=== PATIENT | male | born 1980 | race Caucasian/White ===

== ENCOUNTER 2019-05-02 22:18 | Inpatient (IN) | payer SELFPAY ==
[2019-05-02] MEDS ORDERED: Morphine 4 MG/ML VIAL ONE (23:44)
[2019-05-02] MEDS ORDERED: Ondansetron PF 4 MG/2 ML Vial ONE (23:44)
[2019-05-03 01:03] LABS: #Basophils 0.1 thou/uL (0.0-0.2); #Eosinphils 0.2 thou/uL (0.0-0.7); #Lymphocytes 4.2 thou/uL (1.20-3.40); #Monocytes 0.6 thou/uL (0.11-0.59); #Neutrophils 5.1 thou/uL (1.40-6.50); %Eosinophils 2.3 % (0.0-10.0); %Lymphocytes 41.2 % (21.0-51.0); %Monocytes 6.1 % (0.0-10.0); %Neutrophils 49.4 % (42.0-75.0); Hemoglobin 16.1 g/dL (14.0-18.0); Mean Corpuscular HGB CONC 34.4 g/dL (32.0-36.0); Platelet Count 182 thou/uL (130-400); RBC Distribution Width 11.6 % (11.5-14.5); Red Blood Cell (RBC) Count 5.02 mill/uL (4.70-6.10); White Blood Cell (WBC) Count 10.2 thou/uL (4.8-10.8)
[2019-05-03 01:24] LABS: Bacteria/HPF None Seen HPF (None Seen); Bilirubin Negative (Negative); Blood, Urine Negative (Negative); Clarity Clear (Clear); Glucose, Urine (Dipstick) Greater than 1000 mg/dL (Negative); Leukocyte Negative Leu/uL (Negative); Nitrite Negative (Negative); Protein, Urine (Dipstick) 30 mg/dL (Neg-Trace); RBC/HPF 0-3 HPF (0-3); Squamous Epithelial None Seen HPF (0-3); Urobilinogen Normal mg/dL (Less than 2); WBC/HPF 0-3 HPF (0-3)
[2019-05-03 01:24] LABS: ALT (SGPT) 14 U/L (8-55); AST (SGOT) 12 U/L (5-34); Albumin 3.5 g/dL (3.5-5.0); Alkaline Phosphatase 70 U/L (40-150); Anion Gap 10 mmol/L (10-20); BUN (Urea Nitrogen) 13 mg/dL (8.9-20.6); Bilirubin, Total 0.5 mg/dL (0.2-1.2); Calc. Creatinine Clearance 0 mL/min (70-130); Calcium 8.5 mg/dL (7.8-10.44); Carbon Dioxide 24 mmol/L (22-29); Chloride 104 mmol/L (98-107); Estimated GFR-MDRD Greater than 90; Globulin 2.9 g/dL (2.4-3.5); Glucose 269 mg/dL (70-105); Potassium 3.5 mmol/L (3.5-5.1); Protein, Total 6.4 g/dL (6.0-8.3); Sodium 134 mmol/L (136-145)
[2019-05-03] MEDS ORDERED: Acetaminophen 325 MG TAB PO PRN (01:58)
[2019-05-03] MEDS ORDERED: Ondansetron ODT 4 MG TAB SL PRN (01:58)
[2019-05-03] MEDS ORDERED: Ondansetron PF 4 MG/2 ML Vial IVP PRN (01:58)
[2019-05-03] MEDS ORDERED: Senokot S 8.6-50 MG TAB PO PRN (02:22)
[2019-05-03 02:25] VITALS: BMI 38.0
[2019-05-03] MEDS ORDERED: Dextrose 5% in Water 1,000 ML IV PRN (02:32)
[2019-05-03] MEDS ORDERED: Dextrose 50% Abboject 50 ML SYRINGE SLOW IVP PRN (02:32)
[2019-05-03] MEDS: Clindamycin/D5W 600 MG in Premix Bag 1 BAG IVPB SCH ×2 (02:56→08:25)
[2019-05-03] MEDS ORDERED: Vancomycin HCl 1 GM in Premix Bag 1 BAG IVPB SCH (03:00)
[2019-05-03] MEDS: Morphine 4 MG/ML VIAL SLOW IVP PRN ×4 (03:09→20:39)
--- NOTE | 2019-05-03 03:24 | PDOC.FPRHP ---
- History of Present Illness Chief Complaint: scrotal pain History of Present Illness: Patient is 39M with PMHx of DM, HTN, and recurrent skin abscesses presents with scrotal pain and draining abscess. Patient states the current abscess began 3 days ago, and popped yesterday and began draining foul-smelling pus and blood. He states that the area is painful, rating it a 7-8/10. He states that within the last 1.5 months he has had 4 of these abscesses occur, 2 on his buttock and 2 on his scrotum. He reports that his pops them, puts tea tree oil and antibacterial ointment on them and they go away. He states that 20 years ago he had one abscess on his scrotum that required extensive surgery, and after which they told him it was positive for MRSA. Denies any recent fevers, weight changes, cp, SOB, abdominal pain, diarrhea, constipation, dysuria, hematuria. ED Course: [facility] ED: -Received vanc and clindamycin -CT: L perineal soft tissue swelling, no focal abscess Received fentanyl in ambulance on way from [facility] 1L NS 2mg morphine 4mg zofran - Allergies/Adverse Reactions Allergies Allergy/AdvReac Type Severity Reaction Status Date / Time No Known Drug Allergies Allergy Verified 05/03/19 02:55 - Home Medications Medication Instructions Recorded Confirmed Type Insulin NPH Hum/Reg Insulin HM 4 unit SQ DAILY PRN 05/03/19 05/03/19 History [Novolin 70-30 100 Unit/ml Vial] Lisinopril 20 mg PO DAILY 05/03/19 05/03/19 History metFORMIN [Glucophage] 500 mg PO BID-WM 05/03/19 05/03/19 History - History PMHx: DM, HTN, recurrent skin abscesses, one 20 yrs ago tested positive for MRSA per patient PSHx: scrotal abscess wound debridement 20 years ago FHx:Mom- DM Social:1ppd smoker, no etoh or drugs - Review of Systems General: denies: fever/chills, weight/appetite/sleep changes, night sweats Eyes: denies: eye pain, vision changes ENT: denies: nasal congestion, rhinorrhea Respiratory: reports: shortness of breath (chronic exertional SOB). denies: cough Cardiovascular: denies: chest pain, edema Gastrointestinal: denies: nausea, vomiting, diarrhea, constipation Genitourinary: denies: incontinence, dysuria, discharge Skin: reports: lesions (periscrotal abscesses) Musculoskeletal: denies: pain, swelling Neurological: denies: numbness, seizure, weakness Psychological: denies: anxiety, depression - Vital signs BP: [133/74] HR: [76] RR: [16] Tmax: [97.9] Pox: [95]% on [RA] Wt: [127kg] - Physical Exam Constitutional: NAD, awake, alert and oriented, well developed HEENT: normocephalic and atraumatic, EOMI, MMM Neck: supple, trachea midline Chest: no-tender to palpation, no lesions Heart: RRR, normal S1/S2 Lungs: CTAB, no respiratory distress, good air movement Abdomen: soft, non-tender, bowel sounds present Musculoskeletal: normal structure, normal tone Neurological: no focal deficit, normal sensation Skin: good turgor, other (1.5x1.5cm open draining abscess with faint surrounding erythema on left periscrotal area) Heme/Lymphatic: no unusual bruising or bleeding, no purpura Psychiatric: normal mood and affect, good judgment and insight FMR H&P: Results - Labs Result Diagrams: 05/03/19 05:42 05/03/19 05:42 Lab results: WBC 10.2 thou/uL (4.8-10.8) 05/03/19 00:34 Hgb 16.1 g/dL (14.0-18.0) 05/03/19 00:34 Hct 46.7 % (42.0-52.0) 05/03/19 00:34 MCV 93.0 fL (78.0-98.0) 05/03/19 00:34 Plt Count 182 thou/uL (130-400) 05/03/19 00:34 Neutrophils % 49.4 % (42.0-75.0) 05/03/19 00:34 Sodium 134 mmol/L (136-145) L 05/03/19 00:34 Potassium 3.5 mmol/L (3.5-5.1) 05/03/19 00:34 Chloride 104 mmol/L (98-107) 05/03/19 00:34 Carbon Dioxide 24 mmol/L (22-29) 05/03/19 00:34 BUN 13 mg/dL (8.9-20.6) 05/03/19 00:34 Creatinine 0.75 mg/dL (0.7-1.3) 05/03/19 00:34 Glucose 269 mg/dL (70-105) H 05/03/19 00:34 Lactic Acid 0.7 mmol/L (0.5-2.2) 05/03/19 00:31 Calcium 8.5 mg/dL (7.8-10.44) 05/03/19 00:34 Total Bilirubin 0.5 mg/dL (0.2-1.2) 05/03/19 00:34 AST 12 U/L (5-34) 05/03/19 00:34 ALT 14 U/L (8-55) 05/03/19 00:34 Alkaline Phosphatase 70 U/L (40-150) 05/03/19 00:34 Serum Total Protein 6.4 g/dL (6.0-8.3) 05/03/19 00:34 Albumin 3.5 g/dL (3.5-5.0) 05/03/19 00:34 Urine Ketones 10 mg/dL (Negative) A 05/03/19 01:06 Urine Blood Negative (Negative) 05/03/19 01:06 Urine Nitrite Negative (Negative) 05/03/19 01:06 Ur Leukocyte Esterase Negative Farooq/uL (Negative) 05/03/19 01:06 Urine RBC 0-3 HPF (0-3) 05/03/19 01:06 Urine WBC 0-3 HPF (0-3) 05/03/19 01:06 Ur Squamous Epith Cells None Seen HPF (0-3) 05/03/19 01:06 Urine Bacteria None Seen HPF (None Seen) 05/03/19 01:06 FMR H&P: A/P - Problem List (1) Cellulitis Current Visit: Yes Status: Acute Code(s): L03.90 - CELLULITIS, UNSPECIFIED (2) Diabetes mellitus type 2 in obese Current Visit: Yes Status: Acute Code(s): E11.69 - TYPE 2 DIABETES MELLITUS WITH OTHER SPECIFIED COMPLICATION; E66.9 - OBESITY, UNSPECIFIED (3) HTN (hypertension) Current Visit: Yes Status: Acute Code(s): I10 - ESSENTIAL (PRIMARY) HYPERTENSION - Plan #periscrotal cellulitis with draining abscess, periscrotal pain -hx of MRSA from previous abscess, per patient -recurrent skin abscesses -given vanc and clindamycin at outside ED, continue -pharmacy to dose -monitor vanc troughs -morphine for pain control -wound care consult -consider sx consult in am #DMII -chronic, patient takes metformin at home -hyperglycemia protocol -SSI -hold home metformin #HTN -takes lisinopril at home -continue home meds DVT proph: lovenox GI proph: pepcid Diet: CC Code: Full Dispo: Obs for abx management of cellulitis FMR H&P: Upper Level - Plan Date/Time: 05/03/19 0361 I, Arias Bashir MD , have evaluated this patient and agree with findings/plan as outlined by international banker resident. Pertinent changes/additions are listed here. Shadi Contreras is a 39 year old M with a PMH of HTN, DM2, recurrent skin infections who was sent to [facility] ER from [facility] ED for periscrotal abscess. Patient states that he has been dealing with recurrent abscess and skin infection around the periscrotal and scrotal area for the last year. States that this particular time, symptoms started about 3 days ago. The area started spontaneously draining pus and blood about 1-2 days ago but he states that the pain has continued. In [facility], he was started on Vancomycin and clindamycin as well as toradol and fentanyl for pain and CT was done that showed soft tissue swelling in the left perineal region and no focal abscess. In the [facility] ED, he was given 1 L NS, 2 mg morphine, 4 mg zofran. Labs and physical exam findings as above. Vitals were all stable and wnl. Patient is admitted to obs/medical for periscrotal cellulitis, will like transition patient to PO antibiotics later today. My suspicion for emy's gangrene is low at this time but will have low threshold to consult gen surg for evaluation. Continue Vanc and clinda at this time, patient does have a hx of MRSA skin infection. Pain control. Anticipate hospital stay < 48 hours. Please see international banker note above for full H&P. Addendum - Attending - Attending Attestation Date/Time: 05/03/19 8187 I personally evaluated the patient and discussed the management with Dr. Mai/ Mckay. I agree with the History, Examination, Assessment and Plan documented above with any addition or exceptions noted below. Patient with uncontrolled DM and history of multiple groin abscesses here with similar presentation. We will continue on abx and consult Gen Surgery to see if these are in need of debridement and drainage. Consult wound care. Further mgmt per their recs.
[2019-05-03] MEDS: Nicotine 21 MG PATCH TD SCH (03:41)
--- NOTE | 2019-05-03 05:39 | PDOC.FM ---
- Subjective Subjective: Pt has no complaints this morning. He states his pain is controlled with morphine. Cellulitis continues draining but he believes it has improved. He denies fever, chills. - Objective Vital Signs & Weight: Vital Signs (12 hours) Temp Pulse Resp BP Pulse Ox 05/03/19 01:50 97.8 F 76 18 123/83 97 Weight Weight 127.119 kg Result Diagrams: 05/03/19 05:42 05/03/19 05:42 Phys Exam - Physical Examination Constitutional: NAD Respiratory: no wheezing, no rales, no rhonchi, clear to auscultation bilateral Cardiovascular: RRR, no significant murmur Gastrointestinal: soft, non-tender, no distention Musculoskeletal: no edema, pulses present Deviation from normal: Pt has erythematous lesion on L upper leg in the groin regoin, draining Dx/Plan (1) Cellulitis Code(s): L03.90 - CELLULITIS, UNSPECIFIED Status: Acute (2) Diabetes mellitus type 2 in obese Code(s): E11.69 - TYPE 2 DIABETES MELLITUS WITH OTHER SPECIFIED COMPLICATION; E66.9 - OBESITY, UNSPECIFIED Status: Acute (3) HTN (hypertension) Code(s): I10 - ESSENTIAL (PRIMARY) HYPERTENSION Status: Acute - Plan Plan: #periscrotal cellulitis with draining, periscrotal pain Hx of MRSA from previous abscess, recurrent skin abscesses, per pt -continue vancomycin (Started 05/02), discontinue clindamycin (05/02-05/03) as both have coverage for MSSA. -pharmacy to dose -monitor vanc troughs -morphine for pain control - well controlled -wound care consult, appreciate recs - surg consult, appreciate recs #DMII -chronic, patient takes metformin at home; will re-evaluate control at this time as he remains hyperglycemic and this is contributing to cellulitis, recurrent. -hyperglycemia protocol -SSI mild -hold home metformin #HTN -takes lisinopril at home -continue home meds DVT proph: lovenox GI proph: pepcid Diet: CC Code: Full Dispo: Pt is inpt at this time, consulting surg and wound care to further assess lesion as this could progress to emy's gangrene and continuing abx coverage.
[2019-05-03] MEDS: HumaLOG 300 UNITS/3 ML VIAL SC PRN ×4 (06:32→20:27)
[2019-05-03 06:35] LABS: Band 3 % (5-11); Eosinophils 3 % (0-10); Hemoglobin 15.7 g/dL (14.0-18.0); Lymphocytes 41 % (21-51); MDiff Complete? YES; Mean Corpuscular HGB CONC 32.8 g/dL (32.0-36.0); Mean Corpuscular Hemoglobin 30.4 pg (27.0-31.0); Mean Corpuscular Volume 92.7 fL (78.0-98.0); Mean Platelet Volume 8.3 fL (7.4-10.4); Monocytes 3 % (0-10); Neutrophil 50 % (42-75); Platelet Count 168 thou/uL (130-400); Platelet Morphology Comment Appears Adequate; RBC Distribution Width 11.6 % (11.5-14.5); Red Blood Cell (RBC) Count 5.17 mill/uL (4.70-6.10); White Blood Cell (WBC) Count 9.3 thou/uL (4.8-10.8)
[2019-05-03 06:40] LABS: Anion Gap 9 mmol/L (10-20); BUN (Urea Nitrogen) 11 mg/dL (8.9-20.6); Calc. Creatinine Clearance 242 mL/min (70-130); Calcium 8.2 mg/dL (7.8-10.44); Carbon Dioxide 21 mmol/L (22-29); Chloride 105 mmol/L (98-107); Estimated GFR-MDRD Greater than 90; Glucose 212 mg/dL (70-105); Potassium 3.8 mmol/L (3.5-5.1); Sodium 131 mmol/L (136-145)
[2019-05-03] MEDS: Famotidine 20 MG TAB PO SCH ×2 (08:23→20:28)
[2019-05-03] MEDS: Lisinopril 20 MG TAB PO SCH (08:24)
[2019-05-03] MEDS: Enoxaparin Sodium 40 MG/0.4 ML SYRINGE SC SCH (08:25)
[2019-05-03] MEDS ORDERED: Boudreaux's Butt Paste 60 GM TUBE TOP PRN (09:34)
--- NOTE | 2019-05-03 13:18 | CON ---
DATE OF CONSULTATION: 05/03/2019 CHIEF COMPLAINT: Perineal infection. HISTORY OF PRESENT ILLNESS: This is a 39-year-old male with a history of diabetes mellitus, insulin dependent, who presents with a history of open draining wound in his left groin. 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 He notes that he has these wounds open up in his perineum intermittently. They swell, they hurt, they drain, and then they are better for a while. He notes no pain now. There is a foul smell of the fluid coming out. He notes that they had actually the pain solis much improved. It is not so severe. No fevers or chills. He was transferred here from [place] for higher level of care. PAST MEDICAL HISTORY: Includes diabetes mellitus, type 2; hypertension; and recurrent skin infections. PAST SURGICAL HISTORY: Includes scrotal debridements. MEDICATIONS: Medicines taken daily: See list in chart. ALLERGIES: NO KNOWN DRUG ALLERGIES. SOCIAL HISTORY: He is a 7-vkmc-o-day smoker. No alcohol or other drugs. REVIEW OF SYSTEMS: Ten-system review of systems is otherwise negative unless described above. PHYSICAL EXAMINATION: VITAL SIGNS: Blood pressure is 132/76, pulse 73, respirations 18, temperature 97.6. HEENT: Sclerae are anicteric. Oropharynx is clear. NECK: No lymphadenopathy. CHEST: Clear. HEART: Regular rate. ABDOMEN: Soft and nontender. GENITOURINARY: Examination of his perineum reveals there to be no obvious scrotal or external genitalia infection. There are condyloma-appearing changes to the right groin and in the perianal area. There is no obvious perirectal abscess. There are no open wounds to the perirectal area. There is a small 1-cm open wound with foul-smelling small amount of fluid to the left inner thigh. There is no obvious tunneling over to the scrotum. There is no scrotal bulla, fluctuance, or crepitance. LABORATORY DATA: White blood cell count is 9, hemoglobin 15, platelet count is 168. His creatinine is 0.73. ASSESSMENT: 1. Perineal infection. 2. History of Katherine gangrene. 3. Insulin-dependent diabetes mellitus. 4. Hypertension. PLAN: I do not think he needs any debridement at this time. I would recommend to continue IV antibiotics. We will reassess in the morning and likely discharge home tomorrow and switch to oral antibiotics. I would then see him back in my office in a few weeks for wound check. Job ID: [id number]
[2019-05-03] MEDS ORDERED: Ibuprofen 800 MG TAB PO PRN (13:32)
[2019-05-03 16:52] LABS: Hemoglobin A1c 11.1 % (4.0-6.0)
[2019-05-03] MEDS: Acetaminophen 325 MG TAB PO SCH (17:26)
[2019-05-03] MEDS: Boudreaux's Butt Paste 60 GM TUBE TOP SCH (20:42)
[2019-05-04] MEDS: Acetaminophen 325 MG TAB PO SCH ×3 (01:12→11:02)
[2019-05-04] MEDS: Nicotine 21 MG PATCH TD SCH (03:18)
[2019-05-04 03:44] LABS: Vancomycin, Trough 18.3 ug/mL
--- NOTE | 2019-05-04 05:55 | PDOC.FM ---
- Subjective Subjective: Pt is doing well. He has no complaints. Cellulitis is less painful and in his perspective improving. - Objective Vital Signs & Weight: Vital Signs (12 hours) Temp Pulse Resp BP Pulse Ox 05/04/19 04:27 97.7 F 77 16 112/59 L 96 05/04/19 00:17 97.7 F 70 16 96/58 L 96 05/03/19 20:00 95 Weight Admit Weight 127.119 kg Weight 127.119 kg I&O: 05/02/19 05/03/19 05/04/19 06:59 06:59 06:59 Intake Total 250 1320 Balance 250 1320 Result Diagrams: 05/03/19 05:42 05/03/19 05:42 Phys Exam - Physical Examination Constitutional: NAD overweight HEENT: PERRLA, sclera anicteric Neck: no nodes, no JVD Respiratory: no wheezing, no rales, no rhonchi, clear to auscultation bilateral Cardiovascular: RRR, no significant murmur Gastrointestinal: soft, non-tender, positive bowel sounds Musculoskeletal: no edema, pulses present Psychiatric: normal affect, A&O x 3 -: Lesion on L leg is mildly erythematous, did not appreciate any drainage Dx/Plan (1) Cellulitis Code(s): L03.90 - CELLULITIS, UNSPECIFIED Status: Acute (2) Diabetes mellitus type 2 in obese Code(s): E11.69 - TYPE 2 DIABETES MELLITUS WITH OTHER SPECIFIED COMPLICATION; E66.9 - OBESITY, UNSPECIFIED Status: Acute (3) HTN (hypertension) Code(s): I10 - ESSENTIAL (PRIMARY) HYPERTENSION Status: Acute - Plan Plan: # Periscrotal cellulitis with draining, periscrotal pain Hx of MRSA from previous abscess, recurrent skin abscesses, per pt -continue vancomycin (Started 05/02), discontinue clindamycin (05/02-05/03); pt healing well - consult surg, appreciate recs - surg does not feel need for debridement and likely pt will be fine for discharge today with oral abx; will follow up with surg regarding abx therapy, pt will follow up with surg as outpt in a couple of weeks # DMII - chronic, patient takes metformin at home; hyperglycemia contributing to recurrent abscess - hyperglycemia protocol - SSI mild requiring 14 U 05/03 - restart metformin and increase to 1000 mg PO BID - will consider Novolog 70/30 5 U BID # Hyponatremia - asymptomatic, corrected sodium 133 # HTN -takes lisinopril at home -continue home meds DVT proph: lovenox GI proph: pepcid Diet: CC Code: Full Dispo: Pt is inpt at this time, consulting surg and wound care to further assess lesion as this could progress to emy's gangrene and continuing abx coverage. Addendum - Attending - Attending Attestation Date/Time: 05/04/19 8493 I personally evaluated the patient and discussed the management with Dr. Coker. I agree with the History, Examination, Assessment and Plan documented above with any addition or exceptions noted below. Patient here for recurrent scrotal cellulitis. He does not need surgical drainage as of yet, awaiting re-eval by general surgery today. If no drainage needed, discharge home later today with PO abx and initiation of insulin therapy for his uncontrolled DM.
[2019-05-04] MEDS: HumaLOG 300 UNITS/3 ML VIAL SC PRN ×2 (06:18→13:23)
[2019-05-04] MEDS ORDERED: HumuLIN 70/30 (300 UNITS/3 ML VIAL) SC SCH ×2 (09:40→21:00)
[2019-05-04] MEDS: Famotidine 20 MG TAB PO SCH (09:58)
[2019-05-04] MEDS: Lisinopril 20 MG TAB PO SCH (09:59)
[2019-05-04] MEDS: Enoxaparin Sodium 40 MG/0.4 ML SYRINGE SC SCH (10:02)
[2019-05-04] MEDS: metFORMIN 500 MG TAB PO SCH ×2 (10:02→17:00)
[2019-05-04] MEDS: Boudreaux's Butt Paste 60 GM TUBE TOP SCH (10:03)
[2019-05-04] MEDS: Morphine 4 MG/ML VIAL SLOW IVP PRN (11:02)
[2019-05-04 14:51] VITALS: BP 110/68; TEMP 98.1
--- NOTE | 2019-05-04 18:46 | DIS ---
DATE OF ADMISSION: 05/03/2019 DATE OF DISCHARGE: 05/04/2019 RESIDENT: Leno Coker DO ADMITTING ATTENDING: Ben Paniagua MD DISCHARGE ATTENDING: Storm Finley MD CONSULTS: Surgery, Julian Storey MD PROCEDURES: None. PRIMARY DIAGNOSES: Perineal cellulitis/periscrotal cellulitis. SECONDARY DIAGNOSES: 1. Uncontrolled type 2 diabetes. 2. Hyponatremia. 3. Hypertension. DISCHARGE MEDICATIONS: 1. Metformin 1000 mg b.i.d. 2. Bactrim 1 tablet p.o. b.i.d. for seven days. 3. Humulin 70/30, 5 units subcutaneous b.i.d. 4. Tylenol 650 mg p.o. q.6 hours. 5. Lisinopril 20 p.o. daily. DISCONTINUE MEDICATIONS: 1. Metformin 500 mg p.o. b.i.d. 2. Novolin 70/30, 4 units subcu daily. HISTORY OF PRESENT ILLNESS/HOSPITAL COURSE: Mr. Contreras is a 39-year-old gentleman with past medical history significant for uncontrolled diabetes type 2, hypertension, and recurrent skin abscesses with multiple in the previous month and a half. He presented with scrotal pain and draining wound on his left leg, periscrotal region. This abscess popped up three days prior and was draining foul-smelling pus and blood. He did have history of Katherine gangrene, MRSA 20 years ago. At that time, he did not show signs of systemic infection. He came to [facility] from [facility], where he received vancomycin and clindamycin. CT scan revealed left perineal soft tissue swelling, no focal abscess. At the time of arrival, we started the patient on vancomycin and clindamycin due to his history of MRSA and recurrent skin abscesses. He did not appear septic. We consulted Dr. Storey at this time with General surgery. They evaluated the patient and did not feel need for surgery. We monitored the wound for one more day. His cellulitis continued to improve. On day of discharge, there was a significant decrease in the erythema and pain. We switched his vancomycin to Bactrim and we will continue home on a seven day course. He will follow up with Surgery in two weeks. Of note, the patient had significantly elevated glucose. Blood sugars on admission were 269 and he ranged between 200 and 300 during his stays. His A1c was 11.1. We restarted his metformin, but increased it to 1000 b.i.d. We also started him on a Novolin 70/30, 5 units b.i.d. He tolerated this well before discharge. On discharge, his blood sugars were 180. He could stand to have his insulin titrated up as an outpatient in his primary care physician visit. Of note, he was using Humalog 70/30 outpatient on a sliding scale insulin regimen on his own, he purchased this [id number] at [employer]. I also counseled him extensively on diet and portion control. He seemed agreeable to decreasing his portion sizes. This would be something good for the primary care physician to follow up on. DISPOSITION: Stable. DISCHARGE INSTRUCTIONS: 1. Location: [facility]. 2. Diet: Low carb diet. 3. Activity: Ad bravo. 4. Followup: Dr. Julian Storey, Julian montero in 2 weeks. 5. Primary care physician in seven days. Job ID: [id number]
[2019-05-04] MEDS ORDERED: Sulfameth/Trimethoprim DS 800-160mg TAB PO SCH (21:00)
== END 2019-05-04 17:31 | disposition home or self-care (01) | DRG 728 ==
LOC: ERS 22:18 → ERHOLD 05-03 01:06 → ONC 05-03 01:50
PROVIDERS: ADMIT Family Medicine; ATTEND Family Medicine
DX: N49.2 Inflammatory disorders of scrotum (principal); E87.1 Hypo-osmolality and hyponatremia; I10 Essential (primary) hypertension; E66.9 Obesity, unspecified; Z68.38 Body mass index [BMI] 38.0-38.9, adult; F17.210 Nicotine dependence, cigarettes, uncomplicated; E11.65 Type 2 diabetes mellitus with hyperglycemia
CPT/HCPCS: 36415; 36416; 80053; 80202; 81003; 81015; 83036; 83605; 85025; 87040; 96361; 96374; 96375; 99406; J1650; J1815; J2270; J2405; J3370; J3490; J7050; Q0162